=== PATIENT | male | born 1930 | race African-American/Black ===

== ENCOUNTER 2018-12-18 20:13 | Inpatient (IN) | payer MEDICARE, OTHER ==
[~2018-12-18] VITALS: Ht 188 cm; Wt 72.6 kg
[~2018-12-18 20:13] MED LIST: GABA-533 PO; LOSA100T32 PO; METH500T PO; TIMO15DR12 BOTHEYE; TRAM50TA3 PO; WARF2.5T47 PO
[2018-12-18 21:42] LABS: CHLORIDE 109 mEq/L (98-107)
[2018-12-18 21:43] LABS: BASOPHILS % 0.7 % (0.0-2.0); EOSINOPHILS % 1.1 % (0.0-5.0); HEMATOCRIT. 37.5 % (42.0-52.0); HEMOGLOBIN. 12.3 g/dL (14.0-18.0); LYMPHOCYTES % 30.5 % (20.0-50.0); MEAN CORPUSCULAR HEMOGLOBIN 26.9 pg (28.0-32.0); MEAN CORPUSCULAR VOLUME 82.3 fL (80.0-94.0); MEAN PLATELET VOLUME 9.3 fl (7.4-10.4); MONOCYTES % 13.7 % (2.0-8.0); PLATELET 161 x1000/uL (130-400); RED BLOOD CELL COUNT 4.56 mill/uL (4.7-6.1); RED CELL DISTRIBUTION WIDTH 15.7 % (11.6-14.6)
[2018-12-19] MEDS ORDERED: CLONIDINE 0.1MG TABLET PO ONE (00:15)
[2018-12-19 03:05] LABS: CLARITY URINE CLEAR (CLEAR); COLOR URINE YELLOW (YELLOW); KETONES URINE NEGATIVE (NEGATIVE); LEUKOCYTE ESTERASE URINE TRACE (NEGATIVE); NITRITE URINE NEGATIVE (NEGATIVE); OCCULT BLOOD URINE NEGATIVE (NEGATIVE); PH URINE 6.5 (4.5-8.0); PROTEIN URINE NEGATIVE (NEGATIVE); SPECIFIC GRAVITY URINE 1.014 (1.005-1.030)
[2018-12-19] MEDS ORDERED: CLONIDINE 0.1MG TABLET PO PRN (07:12)
[2018-12-19] MEDS ORDERED: HYDROCODONE/ACETAMINOPHEN 10/325MG TABLET PO PRN (07:15)
[2018-12-19 10:00] VITALS: BP_SYST 156; BP_SYST 160; BP_DIAS 92; BP_DIAS 93
[2018-12-19] MEDS ORDERED: MORPHINE SULFATE 2 MG/ML CPJ (NOT FOR IM USE) IV PRN (10:00)
[2018-12-19] MEDS ORDERED: HYDROCODONE/ACETAMINOPHEN 5/325MG TABLET PO PRN (10:00)
[2018-12-19] MEDS ORDERED: CIPR-168 PO (11:35)
[2018-12-19] MEDS ORDERED: DILT60TA41 GT (11:35)
[2018-12-19 12:17] VITALS: BP 158/94
[2018-12-19] MEDS ORDERED: ACETAMINOPHEN 325MG TABLET PO PRN (13:15)
[2018-12-19] MEDS ORDERED: POLYETHYLENE GLYCOL 3350 (17GM) 1 DOSE PACK PO PRN (13:15)
[2018-12-19] MEDS ORDERED: IPRATROPIUM/ALBUTEROL 0.5-3(2.5)MG/3ML NEB INH PRN (13:15)
[2018-12-19] MEDS ORDERED: ONDANSETRON HCL 4MG/2ML INJ IV PRN (13:15)
[2018-12-19] MEDS ORDERED: MVI, ADULT NO.1 10 ML, FOLIC ACID 1 MG, THIAMINE HCL 100 MG in SODIUM CHLORIDE 0.9% 1,0... IV SCH ×4 (13:15)
[2018-12-19] MEDS ORDERED: DOCUSATE SODIUM 100MG CAPSULE PO PRN (13:15)
[2018-12-19] MEDS ORDERED: DILTIAZEM HCL 120MG CAPSULE CD 24HR PO SCH (13:30)
[2018-12-19] MEDS: FUROSEMIDE 20MG TABLET PO SCH (15:00)
[2018-12-19] MEDS: DILTIAZEM HCL 60MG TABLET PO SCH ×2 (15:01→22:03)
[2018-12-19 16:00] VITALS: BP 123/73
[2018-12-19] MEDS: LOSARTAN POTASSIUM 50 MG TABLET PO SCH ×2 (17:21→17:26)
[2018-12-19 19:29] LABS: INR 2.4; PROTHROMBIN TIME 24.2 sec (9.6-11.0)
[2018-12-19 19:34] LABS: PHOSPHORUS 2.4 mg/dL (2.5-4.9)
[2018-12-19 19:43] LABS: FERRITIN 487 ng/mL (22-322)
[2018-12-19 20:00] VITALS: BP 152/93
[2018-12-19] MEDS ORDERED: WARFARIN SODIUM 2.5MG TABLET PO SCH (21:00)
[2018-12-19 21:40] LABS: VITAMIN B12 SERUM 627 pg/mL (211-911)
[2018-12-19 21:41] LABS: FOLIC ACID (FOLATE) SERUM > 20.00 ng/mL (>5.38)
[2018-12-19] MEDS: TIMOLOL MALEATE 0.5% OPHTH DROPS 5ML EACHEYE SCH (22:02)
[2018-12-19] MEDS: METHOCARBAMOL 500MG TABLET PO SCH (22:02)
[2018-12-20] VITALS: BP 151/88
[2018-12-20 04:00] VITALS: BP 154/99
[2018-12-20] MEDS: DILTIAZEM HCL 60MG TABLET PO SCH ×2 (05:22→05:23)
[2018-12-20 07:27] LABS: INR 2.1; PROTHROMBIN TIME 20.7 sec (9.6-11.0)
[2018-12-20 07:36] LABS: BASOPHILS % 0.5 % (0.0-2.0); EOSINOPHILS % 1.1 % (0.0-5.0); HEMOGLOBIN. 12.1 g/dL (14.0-18.0); LYMPHOCYTES % 23.7 % (20.0-50.0); MEAN CORPUSCULAR HEMOGLOBIN 27.3 pg (28.0-32.0); MEAN CORPUSCULAR VOLUME 81.3 fL (80.0-94.0); MEAN PLATELET VOLUME 9.2 fl (7.4-10.4); MONOCYTES % 13.8 % (2.0-8.0); NEUTROPHILS % 60.9 % (40.0-76.0); PLATELET 163 x1000/uL (130-400); RED BLOOD CELL COUNT 4.42 mill/uL (4.7-6.1); RED CELL DISTRIBUTION WIDTH 15.4 % (11.6-14.6)
[2018-12-20 07:43] LABS: CHLORIDE 108 mEq/L (98-107)
[2018-12-20 08:00] VITALS: BP 149/94
[2018-12-20] MEDS: LOSARTAN POTASSIUM 50 MG TABLET PO SCH ×2 (09:53→21:00)
[2018-12-20] MEDS: FUROSEMIDE 20MG TABLET PO SCH (09:54)
[2018-12-20 12:21] VITALS: BP 131/82
[2018-12-20] MEDS: DILTIAZEM HCL 120MG CAPSULE CD 24HR PO SCH (14:45)
[2018-12-20 15:53] VITALS: BP 145/89
[2018-12-20] MEDS: WARFARIN SODIUM 2.5MG TABLET PO SCH (18:35)
[2018-12-20 20:00] VITALS: BP 142/74
[2018-12-20] MEDS: ATORVASTATIN CALCIUM 20MG TABLET PO SCH (21:00)
[2018-12-20] MEDS: TIMOLOL MALEATE 0.5% OPHTH DROPS 5ML EACHEYE SCH (22:11)
[2018-12-20] MEDS: METHOCARBAMOL 500MG TABLET PO SCH (22:12)
[2018-12-21] VITALS: BP 131/79
[2018-12-21 04:00] VITALS: BP 144/85
[2018-12-21 08:00] VITALS: BP 151/89
[2018-12-21] MEDS: LOSARTAN POTASSIUM 50 MG TABLET PO SCH ×2 (09:12→21:00)
[2018-12-21] MEDS: FUROSEMIDE 20MG TABLET PO SCH (09:12)
[2018-12-21] MEDS: DILTIAZEM HCL 120MG CAPSULE CD 24HR PO SCH (09:12)
[2018-12-21 10:27] LABS: INR 1.9; PROTHROMBIN TIME 19.1 sec (9.6-11.0)
[2018-12-21 11:59] VITALS: BP 141/90
[2018-12-21 16:00] VITALS: BP 109/68
[2018-12-21] MEDS: WARFARIN SODIUM 2.5MG TABLET PO SCH (17:21)
[2018-12-21] MEDS ORDERED: LOSA50TA41 MT (18:57)
[2018-12-21] MEDS ORDERED: DILT-26 MT (18:59)
[2018-12-21 20:00] VITALS: BP 127/85
[2018-12-21] MEDS: METHOCARBAMOL 500MG TABLET PO SCH (21:00)
[2018-12-21] MEDS: TIMOLOL MALEATE 0.5% OPHTH DROPS 5ML EACHEYE SCH (21:00)
[2018-12-21] MEDS: ATORVASTATIN CALCIUM 20MG TABLET PO SCH (21:00)
[2018-12-22] VITALS: BP 132/86
[2018-12-22 04:00] VITALS: BP 139/89
[2018-12-22 07:13] LABS: BASOPHILS % 0.5 % (0.0-2.0); EOSINOPHILS % 2.1 % (0.0-5.0); HEMATOCRIT. 37.3 % (42.0-52.0); HEMOGLOBIN. 12.6 g/dL (14.0-18.0); MEAN CORPUSCULAR HEMOGLOBIN 27.4 pg (28.0-32.0); MEAN CORPUSCULAR VOLUME 80.9 fL (80.0-94.0); MONOCYTES % 12.5 % (2.0-8.0); NEUTROPHILS % 58.9 % (40.0-76.0); PLATELET 158 x1000/uL (130-400); RED BLOOD CELL COUNT 4.61 mill/uL (4.7-6.1); RED CELL DISTRIBUTION WIDTH 15.5 % (11.6-14.6)
[2018-12-22 07:14] LABS: CHLORIDE 105 mEq/L (98-107)
[2018-12-22 07:32] LABS: CREATINE KINASE 83 IU/L (39-308)
[2018-12-22 07:46] LABS: INR 2.1; PROTHROMBIN TIME 21.3 sec (9.6-11.0)
[2018-12-22 08:00] VITALS: BP 121/82
[2018-12-22] MEDS: DILTIAZEM HCL 120MG CAPSULE CD 24HR PO SCH (09:45)
[2018-12-22] MEDS: LOSARTAN POTASSIUM 50 MG TABLET PO SCH (09:46)
[2018-12-22] MEDS: FUROSEMIDE 20MG TABLET PO SCH (09:46)
[2018-12-22] MEDS ORDERED: POTASSIUM CHLORIDE 20MEQ/PACKET PO NR (10:15)
[2018-12-22 12:54] VITALS: BP 108/66
[2018-12-22 16:36] VITALS: BP 132/86
[2018-12-22 16:57] VITALS: BP 132/86
[2018-12-22] MEDS: WARFARIN SODIUM 2.5MG TABLET PO SCH (18:04)
[2018-12-24 09:06] LABS: ALDOLASE 5.5 U/L (3.3-10.3)
[2018-12-24 10:11] LABS: DRVVT LA 48.9 sec (0.0-47.0); PTT-LA 62.1 sec (0.0-51.9)
[2018-12-24 13:15] LABS: ANA IFA Negative (.); ANTI-CARDIOLIPIN AB IGA < 9 APL U/mL (0-11); ANTI-CARDIOLIPIN AB IGG < 9 GPL U/mL (0-14); ANTI-CARDIOLIPIN AB IGM < 9 MPL U/mL (0-12); COMPLEMENT C3 102 mg/dL (82-167)
[2018-12-24 17:13] LABS: PTT-LA INCUB MIX 57.1 sec (0.0-48.9); PTT-LA MIX 48.2 sec (0.0-48.9)
[2018-12-25 04:13] LABS: HEXAGONAL PHASE PHOSPHOLIPID 0 sec (0-11); LUPUS ANTICOAG INTERPRETATION Comment: (.)
[2018-12-25 15:14] LABS: ANTI-MYELOPEROXIDASE AB < 9.0 U/mL (0.0-9.0); ANTI-PROTEINASE 3 ABS < 3.5 U/mL (0.0-3.5); ATYPICAL P-ANCA <1:20 titer (Neg:<1:20); CYTOPLASMIC C-ANCA <1:20 titer (Neg:<1:20); PERINUCLEAR P-ANCA <1:20 titer (Neg:<1:20)
== END 2018-12-22 20:35 | DRG 65 ==
LOC: ER 20:13 → 6EST 12-19 02:47 → EDBEDREQTM 12-19 02:51 → EDBEDREQ 12-19 02:51 → ENRESERV 12-19 06:59
PROVIDERS: ADMIT Internal Medicine; ATTEND Internal Medicine
DX: I63.512 Cerebral infarction due to unspecified occlusion or stenosis of left middle cerebral artery (principal); N39.0 Urinary tract infection, site not specified; I69.354 Hemiplegia and hemiparesis following cerebral infarction affecting left non-dominant side; I48.2 Chronic atrial fibrillation; R47.1 Dysarthria and anarthria; E78.5 Hyperlipidemia, unspecified; R31.9 Hematuria, unspecified; M15.9 Polyosteoarthritis, unspecified; D50.9 Iron deficiency anemia, unspecified; D72.821 Monocytosis (symptomatic); E78.00 Pure hypercholesterolemia, unspecified; I27.20 Pulmonary hypertension, unspecified; I48.91 Unspecified atrial fibrillation; N39.44 Nocturnal enuresis; R47.81 Slurred speech; I11.9 Hypertensive heart disease without heart failure; I08.1 Rheumatic disorders of both mitral and tricuspid valves; R13.10 Dysphagia, unspecified; R29.810 Facial weakness; Z82.49 Family history of ischemic heart disease and other diseases of the circulatory system; Z85.46 Personal history of malignant neoplasm of prostate; Z87.891 Personal history of nicotine dependence; Z79.899 Other long term (current) drug therapy; Z79.01 Long term (current) use of anticoagulants; Z88.5 Allergy status to narcotic agent; Z90.79 Acquired absence of other genital organ(s); Z95.810 Presence of automatic (implantable) cardiac defibrillator
CPT/HCPCS: 36415; 71045; 80048; 80061; 82085; 82550; 82607; 82728; 82746; 82962; 83036; 83520; 83540; 83550; 83735; 83880; 84100; 84145; 84443; 84484; 84550; 85613; 85651; 85732; 86140; 86147; 86160; 86256; 86431; 86592; 86780; 92610; 93005; 93306; 93880; 95816; 97116; 97162; 97166; 97530; 99285; J2270; J3411; J3490; J7030

== ENCOUNTER 2019-09-14 05:53 | Inpatient (IN) | payer MEDICARE ==
[~2019-09-14] VITALS: Ht 182.9 cm; Wt 73.5 kg
[~2019-09-14 05:53] MED LIST changes: +DILT-26 MT; -GABA-533 PO; -LOSA100T32 PO; +LOSA50TA41 MT; -TRAM50TA3 PO
[2019-09-14] MEDS ORDERED: SODIUM CHLORIDE 0.9% 1000ML BAG (SEPSIS BOLUS) IV ONE (06:30)
[2019-09-14 07:09] LABS: CHLORIDE 114 mEq/L (98-107)
[2019-09-14 07:12] LABS: BASOPHILS % 0.2 % (0.0-2.0); EOSINOPHILS % 0.3 % (0.0-5.0); HEMATOCRIT. 25.5 % (42.0-52.0); HEMOGLOBIN. 8.3 g/dL (14.0-18.0); LYMPHOCYTES % 16.4 % (20.0-50.0); MEAN CORPUSCULAR HEMOGLOBIN 27.3 pg (28.0-32.0); MEAN CORPUSCULAR VOLUME 83.7 fL (80.0-94.0); MEAN PLATELET VOLUME 8.6 fl (7.4-10.4); MONOCYTES % 7.1 % (2.0-8.0); PLATELET 106 x1000/uL (130-400); RED BLOOD CELL COUNT 3.04 mill/uL (4.7-6.1); RED CELL DISTRIBUTION WIDTH 15.5 % (11.6-14.6)
[2019-09-14 07:16] LABS: INR 3.6; PROTHROMBIN TIME 37.9 sec (9.6-11.0)
[2019-09-14 07:26] LABS: CLARITY URINE TURBID (CLEAR); COLOR URINE ORANGE (YELLOW); KETONES URINE NEGATIVE (NEGATIVE); LEUKOCYTE ESTERASE URINE 3+ (NEGATIVE); NITRITE URINE NEGATIVE (NEGATIVE); OCCULT BLOOD URINE 3+ (NEGATIVE); PH URINE 5.5 (4.5-8.0); PROTEIN URINE 1+ (NEGATIVE); SPECIFIC GRAVITY URINE 1.016 (1.005-1.030)
[2019-09-14] MEDS ORDERED: VANCOMYCIN 1 G PREMIX 200 ML IV ONE (07:45)
[2019-09-14] MEDS ORDERED: PIPERACILLIN/TAZ 3.375G PREMIX 50 ML IV ONE (07:45)
[2019-09-14] MEDS ORDERED: POTASSIUM CHLORIDE INJ 40 MEQ in DEXT 5% WATER 250 ML IV ONE (08:30)
[2019-09-14] MEDS ORDERED: ACETAMINOPHEN WITH CODEINE 300/30MG TABLET PO ONE (08:30)
[2019-09-14] MEDS ORDERED: ACETAMINOPHEN 325MG TABLET PO ONE (08:45)
[2019-09-14] MEDS ORDERED: SODIUM CHLORIDE 0.45% 1,000 ML IV SCH (10:15)
[2019-09-14] MEDS ORDERED: ACETAMINOPHEN 325MG TABLET PO PRN (10:15)
[2019-09-14] MEDS ORDERED: DEXTROSE 50% WATER 50ML SYRINGE IV PRN (10:15)
[2019-09-14 12:30] VITALS: BP 122/70
[2019-09-14] MEDS ORDERED: TAMSULOSIN HCL 0.4MG SR CAPSULE PO SCH (12:45)
[2019-09-14] MEDS: INSULIN LISPRO 100 UNITS/ML SUBCUT SCH ×2 (13:00→17:44)
[2019-09-14] MEDS: BLOOD SUGAR DIAGNOSTIC STRIP TEST SCH ×2 (13:57→17:44)
[2019-09-14 14:00] VITALS: BP 118/75
[2019-09-14] MEDS ORDERED: PIPERACILLIN/TAZOBACTAM 3.375 G in DEXT 5% WATER 100 ML IV SCH (14:00)
[2019-09-14 15:18] LABS: TOTAL IRON BINDING CAPACITY 149 ug/dL (250-450)
[2019-09-14 16:00] VITALS: BP 139/72
[2019-09-14 16:09] VITALS: BP 122/70
[2019-09-14 17:45] VITALS: BP 133/62
[2019-09-14] MEDS ORDERED: MAGNESIUM SULFATE 4G IN WATER 100ML PREMIX IV ONE (18:26)
[2019-09-14] MEDS ORDERED: SODIUM BICARBONATE 8.4% MEQ/ML 50ML VIAL IV ONE (18:26)
[2019-09-14] MEDS ORDERED: EPINEPHRINE 0.1MG/ML (1:10,000) 10ML SYR ONE (18:26)
[2019-09-14] MEDS ORDERED: AMIODARONE HCL 50MG/ML 3ML VIAL IV ONE (18:26)
[2019-09-14] MEDS ORDERED: NOREPINEPHRINE 4 MG in DEXT 5% WATER 246 ML IV PRN (19:00)
[2019-09-14] MEDS ORDERED: AMIODARONE HCL 900 MG in DEXT 5% WATER 482 ML IV PRN (19:00)
[2019-09-14] MEDS ORDERED: ATORVASTATIN CALCIUM 40MG TABLET PO SCH (21:00)
== END 2019-09-14 23:20 | disposition expired | DRG 689 ==
LOC: ER 05:53 → EDBEDREQTM 07:44 → EDBEDREQ 07:44 → 5EST 08:25 → EDBEDREQ 08:28 → EDBEDREQTM 08:29 → ENRESERV 10:35
PROVIDERS: ADMIT Internal Medicine; ATTEND Internal Medicine
PROC: 0BH18EZ Insertion of Endotracheal Airway into Trachea, Via Natural or Artificial Opening Endoscopic (ICD-10-PCS; principal; 2019-09-14)
PROC: 5A12012 Performance of Cardiac Output, Single, Manual (ICD-10-PCS; 2019-09-14)
DX: N39.0 Urinary tract infection, site not specified (principal); G93.41 Metabolic encephalopathy; E87.2 Acidosis; I48.91 Unspecified atrial fibrillation; I10 Essential (primary) hypertension; E78.5 Hyperlipidemia, unspecified; I27.20 Pulmonary hypertension, unspecified; E87.6 Hypokalemia; I36.1 Nonrheumatic tricuspid (valve) insufficiency; Z88.5 Allergy status to narcotic agent; Z79.01 Long term (current) use of anticoagulants; Z79.899 Other long term (current) drug therapy; Z95.0 Presence of cardiac pacemaker; I69.328 Other speech and language deficits following cerebral infarction; I49.01 Ventricular fibrillation
CPT/HCPCS: 36415; 71045; 80053; 81003; 82728; 82962; 83540; 83550; 83605; 84484; 85025; 92610; 93005; 93970; 99291; J0282; J2543; J3370; J3475; J3480; J3490; J7030; J7060